=== PATIENT | male | born 1985 | race Hispanic/Latino ===

== ENCOUNTER 2022-07-11 01:11 | Emergency (ER) | payer OTHER ==
[~2022-07-11] VITALS: Ht 177.8 cm; Wt 91.2 kg
[2022-07-11 01:44] LABS: APPEARANCE,URINE CLEAR (CLEAR); BILIRUBIN,URINE NEGATIVE (NEGATIVE); COLOR,URINE LIGHT-YELLOW (YELLOW); GLUCOSE, URINE (UA) NEGATIVE (NEGATIVE); KETONES,URINE NEGATIVE (NEGATIVE); LEUKOCYTE ESTERASE ,URINE NEGATIVE Leu/uL (NEGATIVE); NITRATE,URINE NEGATIVE (NEGATIVE); OCCULT BLOOD,URINE NEGATIVE (NEGATIVE); PROTEIN,URINE NEGATIVE (NEGATIVE); UROBILINOGEN,URINE 0.2 mg/dL (0.2-1.0)
[2022-07-11 03:15] LABS: BASOPHILS % (AUTO) 0.5 % (0.0-5.0); EOSINOPHILS % (AUTO) 4.1 % (0.0-8.0); HEMATOCRIT 46.7 % (42-54); LYMPHOCYTES % (AUTO) 27.6 % (21.0-51.0); MEAN CORPUSCULAR HEMOGLOBIN 28.5 pg (27.0-33.0); MEAN CORPUSCULAR HGB CONC 33.6 g/dL (32.0-36.0); MEAN CORPUSCULAR VOLUME 84.9 fL (79-99); MONOCYTES % (AUTO) 6.4 % (3.0-13.0); PLATELET COUNT (AUTO) 256 K/uL (130-400); RED CELL DISTRIBUTION WIDTH 13.2 % (11.0-15.5); WHITE BLOOD COUNT (AUTO) 7.8 K/uL (4.8-10.8)
[2022-07-11 03:19] LABS: CREATININE 1.1 mg/dL (0.5-1.5); POTASSIUM 3.6 mmol/L (3.5-5.1)
[2022-07-11 03:23] LABS: ALBUMIN 4.3 g/dL (3.5-5.0); TOTAL PROTEIN, SERUM 8.4 g/dL (6.0-8.3)
[2022-07-11] MEDS ORDERED: PHENAZOPYRIDINE HCL 200 MG TABLET PO ONE (04:00)
[2022-07-11] MEDS ORDERED: IOHEXOL 350 MG/ML 100ML INFUS..BTL IV ONE (07:36)
[2022-07-11] MEDS ORDERED: KETOROLAC 15MG/ML VIAL (15MG/ML) IV ONE (08:30)
[2022-07-11] MEDS ORDERED: NAPR375T6 PO (09:05)
[2022-07-11 09:06] VITALS: BP 127/84
== END 2022-07-11 09:18 | disposition home or self-care (01) ==
LOC: EDH 01:11
DX: N28.1 Cyst of kidney, acquired (principal); R35.89 Other polyuria; N20.0 Calculus of kidney
CPT/HCPCS: 99285; 74177; 96374; 80053; 83690; 85025; 83935; 81003; 36415; 74176; J1885; Q9967

== ENCOUNTER 2022-10-16 11:51 | Emergency (ER) | payer OTHER ==
[~2022-10-16] VITALS: Ht 172.7 cm; Wt 72.6 kg
[~2022-10-16 11:51] MED LIST: NAPR375T6 PO
[2022-10-16 11:57] VITALS: BP 119/42
== END 2022-10-16 14:40 | disposition left against medical advice (07) ==
LOC: EDH 11:51
DX: R07.81 Pleurodynia (principal)
CPT/HCPCS: 71100